=== PATIENT | female | born 1940 | race African-American/Black ===

== ENCOUNTER 2018-02-12 11:02 | Emergency (ER) | payer MEDICARE, OTHER ==
[~2018-02-12] VITALS: Ht 160 cm; Wt 68.0 kg
[~2018-02-12 11:02] MED LIST: ASPIRIN-LOW81 MG ORAL; COZAAR50 MG ORAL; DIOVAN320 MG ORAL; HYDROCHLOROTHIA25 MG ORAL; LOSARTAN POTASS50 MG ORAL; MINIPRESS1 MG PO; MIRTAZAPINE15 M3 ORAL; MIRTAZAPINE15 MG ORAL; NORVASC10 MG ORAL; TOPROL XL100 MG ORAL; VALIUM2 MG ORAL; VISTARIL25 MG ORAL
[2018-02-12] MEDS ORDERED: Acetaminophen 500mg (ES) tab ORAL ONE (11:30)
--- NOTE | 2018-02-12 11:33 | Emergency Room Report ---
History of Present Illness General Chief Complaint: Multiple Trauma/Fall Source: Patient Present Illness HPI 77-year-old female presents with back pain diffusely, as well as left foot and ankle pain, after a ceiling collapsed and fell on her pushing her backwards onto some steps. She had no loss consciousness, denies numbness, tingling, weakness, bleeding. Pain in her back and left foot and ankle, achy constant moderate intensity. Worse with movement. Stride, and she does not want anything strong here today. She is not on any blood thinners other than baby aspirin. Allergies: Coded Allergies: FLUOXETINE (Verified Allergy, Severe, 09/13/15) ams ; suicidal ideation ACETAMINOPHEN (Unverified Allergy, Unknown, 01/31/14) HYDROCODONE (Unverified Allergy, Unknown, 01/31/14) PENICILLINS (Verified Allergy, Unknown, 01/31/14) VENLAFAXINE (Verified Adverse Reaction, Mild, 09/13/15) interferes with the blood pressure medication Patient History Past Medical History: see triage record Reviewed Nursing Documentation: PMH: Agreed; PSxH: Agreed Nursing Documentation-PMH Past Medical History: No History, Except For Hx Cardiac Problems: Yes - angina Hx Hypertension: Yes Review of Systems All Other Systems: negative except mentioned in HPI Physical Exam Vital Signs Date Time Temp Pulse Resp B/P (MAP) Pulse Ox O2 Delivery O2 Flow Rate FiO2 02/12/18 11:10 98.3 62 16 132/73 99 Room Air 98.2 Sp02 EP Interpretation: reviewed, normal General Appearance: no apparent distress, alert, non-toxic Head: normocephalic, atraumatic Eyes: bilateral eye normal inspection, bilateral eye PERRL, bilateral eye EOMI ENT: normal ENT inspection, hearing grossly normal, normal pharynx, no angioedema, normal voice, moist mucus membranes Neck: normal inspection, full range of motion, supple, supple/symm/no masses Respiratory: chest non-tender, lungs clear, normal breath sounds, chest symmetrical, palpation of chest normal Cardiovascular #1: normal peripheral pulses, regular rate, rhythm Cardiovascular #2: 2+ radial (R), 2+ radial (L) Gastrointestinal: normal inspection, non tender, soft, no mass, no guarding, no rebound Rectal: deferred Genitourinary: normal inspection, no CVA tenderness Musculoskeletal: back normal, gait/station normal, normal range of motion, non- tender, no calf tenderness, tender - Left foot dorsum and bilateral left ankle malleoli Neurologic: alert, responsive, desk director III-XII nml as tested, motor strength/tone normal, sensory intact, speech normal Psychiatric: judgement/insight normal, memory normal, mood/affect normal, no suicidal/homicidal ideation Skin: normal color, no rash, warm/dry, normal turgor Lymphatic: no adenopathy Medical Decision Making Diagnostic Impression: Primary Impression: Fall ER Course Patient with no cervical, thoracic, lumbar spine bony tenderness or step-offs, images unremarkable. Foot/ankle/back/cxr also without acute abnormalities, will dc home. Chest X-Ray Diagnostic Results Chest X-Ray Diagnostic Results : # of Views/Limited/Complete: 1 View Indication: Other - back pain EP Interpretation: Yes Interpretation: no consolidation, no effusion, no pneumothorax, no acute cardiopulmonary disease Impression: No acute disease Electronically Signed by: Anne Monson MD Other X-Ray Diagnostic Results Other X-Ray Diagnostic Results #1: X-Ray ordered: L-spine # of Views/Limited Vs Complete: 3 View Indication: Pain EP Interpretation: Yes Interpretation: no dislocation, no soft tissue swelling, no fractures, nonspecific bowel gas, no sbo Impression: No acute disease Electronically Signed by: Anne Monson MD Other X-Ray Diagnostic Results #2: X-Ray ordered: L foot # of Views/Limited Vs Complete: 3 View Indication: Pain EP Interpretation: Yes Interpretation: no dislocation, no soft tissue swelling, no fractures Impression: No acute disease Electronically Signed by: Anne Monson MD Other X-Ray Diagnostic Results #3: X-Ray ordered: L ankle # of Views/Limited Vs Complete: 3 View Indication: Pain EP Interpretation: Yes Interpretation: no dislocation, no soft tissue swelling, no fractures Impression: Other Electronically Signed by: Anne Monson MD CT/MRI/US Diagnostic Results CT/MRI/US Diagnostic Results #1: Imaging Test Ordered: ct head noncontrast Impression No acute dz CT/MRI/US Diagnostic Results #2: Imaging Test Ordered: ct c-spine noncontrast Impression No acute dz Last Vital Signs Date Time Temp Pulse Resp B/P (MAP) Pulse Ox O2 Delivery O2 Flow Rate FiO2 02/12/18 11:10 98.3 62 16 132/73 99 Room Air 98.2 Disposition: HOME, SELF-CARE Condition: Stable ANNE MONSON M.D Feb 12, 2018 11:33
[2018-02-12 11:39] VITALS: BP 132/73
[2018-02-12 12:56] VITALS: BP 147/74
--- NOTE | 2018-02-12 14:06 | Diagnostic Imaging Report ---
Indications: Head trauma Technique: Spiral acquisitions obtained through the brain. Angled axial and coronal 5 x 5 mm slices were reconstructed. Total dose length product 1656.89 mGycm. CTDI vol(s) 70.38,70.38 mGy. Dose reduction achieved using automated exposure control Comparison: 05/18/2007 Findings: Again demonstrated is mild age-related enlargement of the ventricles and extra-axial CSF spaces. There is periventricular deep white matter low-attenuation consistent with chronic ischemic change, progressive. No acute intracranial hemorrhage or edema, mass effect, or midline shift. The calvarium is intact. Visualized orbits and sinuses are unremarkable Impression: Chronic and age-related changes Negative for acute intracranial bleed or mass effect The CT scanner at [facility] is accredited by the [employer] and the scans are performed using protocols designed to limit radiation exposure to as low as reasonably achievable to attain images of sufficient resolution adequate for diagnostic evaluation.
[2018-02-12] MEDS ORDERED: IBUPROFEN600 MG ORAL (14:09)
--- NOTE | 2018-02-12 14:14 | Diagnostic Imaging Report ---
Indication: Pain after trauma Technique: Spiral acquisitions obtained through the cervical spine. No IV contrast utilized. Multiplanar reconstructions were generated. Total dose length product 367.94 mGycm. CTDIvol(s) 17.77 mGy. Dose reduction achieved using automated exposure control. Comparison: none Findings: There is very slight offset of C2 on C3 and C3 on C4 as well as slight straightening of the normal cervical lordosis. The remainder of the bony alignment is normal no acute fractures. No dislocations. Vertebral body heights are preserved. At C2-3, there is mild broad-based posterior disc protrusion, which, in combination with ligament flavum hypertrophy, results in borderline narrowing of the spinal canal. There is minimal narrowing of the right neural foramen due to facet arthrosis. At C3-4, there is minimal degenerative disc narrowing. Facet arthrosis and uncinate hypertrophy results in moderate to severe right and moderate left neural foraminal narrowing. Broad-based posterior disc protrusion results in borderline narrowing of the spinal canal. At C4-5, there is mild to moderate degenerative disc narrowing. Broad-based posterior disc protrusion and posterior osteophyte complex results in mild narrowing of the spinal canal. Bilateral facet arthrosis and uncinate hypertrophy results in moderate to severe bilateral neural foraminal stenosis. At C5-6, there is moderate to severe narrowing of the disc. There is broad-based posterior disc protrusion as well as posterior osteophytes, resulting in moderate spinal stenosis. There is moderate right and severe left neural foraminal stenosis. At C6-7, there is mild to moderate disc narrowing. Broad-based posterior disc protrusion results in borderline narrowing of the spinal canal. There is moderate to severe right and moderate left neural foraminal stenosis. At C7-T1, no significant disc bulge or protrusion, spinal stenosis, or neural foraminal stenosis. The included extraspinal soft tissues are unremarkable Impression: Negative for acute intracranial bleed or mass effect Multilevel degenerative changes, as detailed on a level by level basis above The CT scanner at [facility] is accredited by the [employer] and the scans are performed using protocols designed to limit radiation exposure to as low as reasonably achievable to attain images of sufficient resolution adequate for diagnostic evaluation.
[2018-02-12 14:34] VITALS: BP 142/84
[2018-02-12 14:35] VITALS: BP 147/74
--- NOTE | 2018-02-12 16:50 | Diagnostic Imaging Report ---
Indication: Pain Technique: One view of the chest Comparison: 08/31/2015 Findings: The lungs and pleural spaces are clear. The heart size is upper limits normal. The aorta is tortuous and ectatic. Upper mediastinum is unremarkable Impression: No acute process
--- NOTE | 2018-02-12 16:51 | Diagnostic Imaging Report ---
Indication: Pain, status post fall Technique: 3 views of the left ankle Comparison: None Findings: No acute fractures. No dislocations. The joint spaces are preserved. The bones are osteoporotic Impression: No acute bony trauma
--- NOTE | 2018-02-12 16:52 | Diagnostic Imaging Report ---
Indication: Pain, status post fall Technique: 3 views left foot Comparison: none Findings: No acute fractures. No dislocations. The joint spaces are preserved. Impression: Negative
--- NOTE | 2018-02-12 16:56 | Diagnostic Imaging Report ---
Indication: Pain, status post fall Technique: 3 views of the lumbar spine Comparison: None Findings: There is very slight anterior offset of L3 on L4 and of L4 on L5. Otherwise normal bony alignment. There are anterior degenerative proliferative changes. There is minimal degenerative disc narrowing at L5-S1 and vacuum formation. The vertebral body heights are preserved. No acute fractures. No dislocations. There is multilevel degenerative facet arthrosis. Pedicles are intact. Sacral arches are preserved. Sacroiliac joint spaces are preserved Impression: Degenerative changes, as described No acute bony trauma
== END 2018-02-12 14:35 | disposition home or self-care (01) ==
LOC: EMR 11:30
DX: S09.90XA Unspecified injury of head, initial encounter (principal); W19.XXXA Unspecified fall, initial encounter; Y92.9 Unspecified place or not applicable; M54.9 Dorsalgia, unspecified; M79.672 Pain in left foot; M54.2 Cervicalgia; M25.572 Pain in left ankle and joints of left foot; I10 Essential (primary) hypertension; Z88.8 Allergy status to other drugs, medicaments and biological substances; Z88.0 Allergy status to penicillin; Z79.82 Long term (current) use of aspirin; M50.31 Other cervical disc degeneration, high cervical region
CPT/HCPCS: 70450; 71045; 72020; 72125; 99284

== ENCOUNTER 2018-04-06 12:30 | Outpatient (RCR) | payer MEDICARE, OTHER ==
[~2018-04-06 12:30] MED LIST changes: +IBUPROFEN600 MG ORAL
== END 2018-04-18 | disposition home or self-care (01) ==
LOC: PTY 12:30
DX: M25.562 Pain in left knee (principal); M25.561 Pain in right knee; G89.4 Chronic pain syndrome; M25.572 Pain in left ankle and joints of left foot
CPT/HCPCS: 97110; 97140; 97161; G0283; G8978; G8979

== ENCOUNTER 2018-05-04 09:50 | Outpatient (RCR) | payer MEDICARE, OTHER | END 2018-05-19 | disposition home or self-care (01) | LOC: PTY 09:50 | DX: M25.561 Pain in right knee (principal); M25.562 Pain in left knee; G89.4 Chronic pain syndrome; M25.572 Pain in left ankle and joints of left foot ==

== ENCOUNTER 2018-05-26 13:34 | Outpatient (RCR) | payer MEDICARE, OTHER | END 2018-06-18 | disposition home or self-care (01) | LOC: PTY 13:34 | DX: M25.561 Pain in right knee (principal); M25.562 Pain in left knee; G89.4 Chronic pain syndrome; M25.572 Pain in left ankle and joints of left foot | CPT/HCPCS: 97110; 97140; G8979; G8980 ==